=== PATIENT | female | born 1990 | race Caucasian/White ===

== ENCOUNTER 2017-05-02 19:37 | Emergency (ER) | payer OTHER ==
[2017-05-02] MEDS ORDERED: IBUPROFEN 800 MG TABLET PO ONE (21:10)
--- NOTE | 2017-05-02 21:11 | ER Document Report ---
ED Fever - General Chief Complaint: Fever Stated Complaint: FEVER,SORE THROAT Time Seen by Provider: 05/02/17 20:57 Notes: Patient is a 26 year old female who presents to the ED complaining of fever, sore throat, chest and back pain, and vomiting that started today. Patient states that she woke up this morning with a fever and sore throat. She states that throughout the day she was nauseous and she threw up twice prior to arrival. Patient states that she took [id number] DayQuil and Tylenol and Zofran for her symptoms. She states her most concerning symptoms right now her sore throat as well as her fever. She states that the pain in her back feels better when she lies down. States it is worse with movement. TRAVEL OUTSIDE OF THE [place] IN LAST 30 DAYS: No - Related Data Allergies/Adverse Reactions: No Known Allergies Allergy (Verified 05/02/17 22:24) Past Medical History - Social History Smoking Status: Never Smoker Family History: Reviewed & Not Pertinent Review of Systems - Review of Systems Notes: REVIEW OF SYSTEMS: CONSTITUTIONAL : Admits to fevers chills but denies sweats. Denies recent illness. EENT: Denies eye, ear, throat, or mouth pain or symptoms. Denies nasal or sinus congestion or discharge. Denies throat, tongue, or mouth swelling or difficulty swallowing. CARDIOVASCULAR: Denies chest pain. Denies palpitations or racing or irregular heart beat. Denies ankle edema. RESPIRATORY: Admits to nonproductive cough. Denies shortness of breath, difficulty breathing, or wheezing. GASTROINTESTINAL: Admits to vomiting denies abdominal pain or distention. Denies diarrhea. Denies blood in vomitus, stools, or per rectum. Denies black , tarry stools. Denies constipation. GENITOURINARY: Denies difficulty urinating, painful urination, burning, frequency, blood in urine, or discharge. MUSCULOSKELETAL: Denies any muscle spasms, difficulty walking, extremity pain SKIN: Denies rash, lesions or sores. HEMATOLOGIC : Denies easy bruising or bleeding. LYMPHATIC: Denies swollen, enlarged glands. NEUROLOGICAL: Denies confusion or altered mental status. Denies passing out or loss of consciousness. Denies dizziness or lightheadedness. Denies headache. Denies weakness or paralysis or loss of use of either side. Denies problems with gait or speech. Denies sensory loss, numbness, or tingling. Denies seizures. PSYCHIATRIC: Denies anxiety or stress. Denies depression, suicidal ideation, or homicidal ideation. ALL OTHER SYSTEMS REVIEWED AND NEGATIVE. Dictation was performed using [employer] voice recognition software Physical Exam - Vital signs Vitals: Temp Pulse Resp BP Pulse Ox 100.1 F 121 H 20 137/78 H 98 05/02/17 19:47 05/02/17 19:47 05/02/17 19:47 05/02/17 19:47 05/02/17 19:47 - Notes Notes: PHYSICAL EXAM GENERAL: Alert, interacts well. HEAD: Normocephalic, atraumatic. EYES: Pupils equal, round, and reactive to light. Extraocular movements intact. ENT: Oral mucosa moist, tongue midline. NECK: Full range of motion. Supple. Trachea midline. LUNGS: Clear to auscultation bilaterally, no wheezes, rales, or rhonchi. No respiratory distress. HEART: Regular rate and rhythm. No murmurs, gallops, or rubs. ABDOMEN: Soft, nondistended, nontender. No guarding, rebound, or rigidity.. Bowel sounds present in all 4 quadrants. Back: Lower thoracic Spinal muscle tenderness palpation with pain reproducible to palpation. No spinous process deformities or step-offs. No palpable crepitus EXTREMITIES: Moves all 4 extremities spontaneously. No edema, radial and dorsalis pedis pulses 2/4 bilaterally. No cyanosis. NEUROLOGICAL: Alert and oriented x4. Normal speech. PSYCH: Normal affect, normal mood. SKIN: Warm, dry, normal turgor. No rashes or lesions noted. Course - Re-evaluation Re-evalutation: Patient is a 26-year-old female is hemodynamically stable, no acute distress with mild fever and associated tachycardia. Patient able to tolerate p.o. fluids without any difficulty. Chest x-ray without any evidence of acute mediastinal air, associated cardiopulmonary process. Urinalysis without any evidence of UTI. Beta-hCG is negative. Rapid strep is negative. Patient's back pain significantly improved after Motrin and heat pack. At this time low clinical suspicion for any evidence of strep pharyngitis, meningitis, pneumonia. Will discharge patient home with strict return precautions. - Vital Signs Vital signs: Temp Pulse Resp BP Pulse Ox 100.1 F 104 H 16 113/66 98 05/02/17 19:47 05/02/17 23:00 05/02/17 23:00 05/02/17 23:00 05/02/17 23:00 - Laboratory Laboratory results interpreted by me: 05/02/17 21:15 Urine Blood SMALL H - Diagnostic Test Radiology reviewed: Image reviewed, Reports reviewed Discharge - Discharge Clinical Impression: Fever Qualifiers: Fever type: unspecified Qualified Code(s): R50.9 - Fever, unspecified Condition: Good Disposition: HOME, SELF-CARE Instructions: Fever ([facility]) Additional Instructions: Your symptoms are likely due to a virus. However, it is important that you continue to monitor for any concerning symptoms including inability to tolerate oral fluids, less than 2 urinations in a 24 hour period, and lethargy (acting very tired, not interactive, not responsive). Please continue to offer oral solutions such as Pedialyte or Gatorade. It is okay if you do not want to eat over the next several days but it is important that they continue to drink fluids. You may also provide a medication such as ibuprofen (Motrin) or acetaminophen (Tylenol) per box instructions for fever. Please also follow-up with your primary care physician in the next several days. Forms: Return to Work Referrals: [facility] [Provider Group] - Follow up in 3-5 days
[2017-05-02 21:52] LABS: APPEARANCE,URINE CLEAR; BILIRUBIN,URINE NEGATIVE (NEGATIVE); COLOR,URINE STRAW; GLUCOSE, URINE NEGATIVE (NEGATIVE); KETONES,URINE NEGATIVE (NEGATIVE); LEUKOCYTE ESTERASE,URINE NEGATIVE (NEGATIVE); NITRITE,URINE NEGATIVE (NEGATIVE); PROTEIN,URINE NEGATIVE (NEGATIVE); URINE SPECIFIC GRAVITY 1.006; UROBILINOGEN,URINE NEGATIVE mg/dL (<2.0)
[2017-05-02] MEDS ORDERED: IBUPROFEN 800 MG TABLET ONE (22:15)
--- NOTE | 2017-05-02 22:32 | RADIOLOGY REPORT (SQ) ---
EXAM DESCRIPTION: CHEST PA/LAT COMPLETED DATE/TIME: 05/02/2017 10:23 pm REASON FOR STUDY: chest pain after vomiting COMPARISON: None. EXAM PARAMETERS: NUMBER OF VIEWS: two views TECHNIQUE: Digital Frontal and Lateral radiographic views of the chest acquired. RADIATION DOSE: NA LIMITATIONS: none FINDINGS: LUNGS AND PLEURA: No opacities, masses or pneumothorax. No pleural effusion. MEDIASTINUM AND HILAR STRUCTURES: No masses or contour abnormalities. HEART AND VASCULAR STRUCTURES: Heart normal size. No evidence for failure. BONES: No acute findings. HARDWARE: None in the chest. OTHER: No other significant finding. IMPRESSION: NO SIGNIFICANT RADIOGRAPHIC FINDING IN THE CHEST. TECHNICAL DOCUMENTATION: JOB ID: [id number] [employer]- All Rights Reserved Reading location - IP/workstation name: [email or web address]
[2017-05-02 23:13] VITALS: BP 113/66
== END 2017-05-02 23:15 | disposition home or self-care (01) ==
LOC: ER 19:37
DX: J02.9 Acute pharyngitis, unspecified (principal); R50.9 Fever, unspecified; R07.9 Chest pain, unspecified
CPT/HCPCS: 71046; 81001; 81025; 87070; 87077; 87880; 99283

== ENCOUNTER 2017-05-05 02:07 | Emergency (ER) | payer OTHER ==
[2017-05-05 02:12] VITALS: BP 119/80
[2017-05-05] MEDS ORDERED: AMOXICILLIN TR/POT CLAVULANATE 500-125 MG TAB PO ONE (02:38)
[2017-05-05] MEDS ORDERED: DEXAMETHASONE 4 MG TABLET PO ONE (02:38)
--- NOTE | 2017-05-05 02:42 | ER Document Report ---
ED General - General Chief Complaint: Flu Symptoms Stated Complaint: FEVER Time Seen by Provider: 05/05/17 02:28 Mode of Arrival: Ambulatory Information source: Patient, Relative Notes: 26-year-old female with no reported past medical history presents for the second time this week to the emergency department with complaint persistent fever, sore throat and left ear pain. Patient states symptoms started 3 days prior to arrival. She states she has had a T-max of 103 at home. She has been taking Tylenol and Motrin without relief. Patient has associated headache, myalgias. She denies any chest pain, shortness of breath, nausea, vomiting, abdominal pain, dysuria. Patient had a negative test 3 days ago. She did not receive a flu shot and she denies sick contacts. TRAVEL OUTSIDE OF THE [place] IN LAST 30 DAYS: No - HPI Onset: Other - 3 days ago Onset/Duration: Gradual Quality of pain: Achy, Throbbing Severity: Mild Associated symptoms: Earache, Fever, Headache, Sore throat. denies: Nausea, Vomiting Exacerbated by: Denies Relieved by: Denies Similar symptoms previously: Yes Recently seen / treated by doctor: Yes - Related Data Allergies/Adverse Reactions: No Known Allergies Allergy (Verified 05/02/17 22:24) Past Medical History - General Information source: Patient - Social History Smoking Status: Never Smoker Frequency of alcohol use: None Drug Abuse: None Lives with: Spouse/Significant other Family History: Reviewed & Not Pertinent Patient has suicidal ideation: No Patient has homicidal ideation: No - Medical History Medical History: Negative Renal/ Medical History: Denies: Hx Peritoneal Dialysis Review of Systems - Review of Systems Constitutional: See HPI, Chills, Fever EENT: Ear pain, Sinus discharge, Throat pain, Throat swelling. denies: Difficulty swallowing Cardiovascular: denies: Chest pain, Palpitations Respiratory: denies: Short of breath Gastrointestinal: Nausea. denies: Abdominal pain, Vomiting Genitourinary: denies: Dysuria Physical Exam - Vital signs Vitals: Temp Pulse Resp BP Pulse Ox 97.9 F 94 16 119/80 98 05/05/17 02:10 05/05/17 02:10 05/05/17 02:10 05/05/17 02:10 05/05/17 02:10 - General General appearance: Appears well, Alert In distress: None - HEENT Head: Normocephalic, Atraumatic Eyes: Normal Pupils: PERRL Ears: Normal External canal: Normal Tympanic membrane: Normal Sinus: Normal Nasal: Normal Pharynx: Erythema, Exudate Neck: Anterior cervical chain, Posterior cervical chain - Respiratory Respiratory status: No respiratory distress Chest status: Nontender Breath sounds: Normal Chest palpation: Normal - Cardiovascular Rhythm: Regular Heart sounds: Normal auscultation Murmur: No Pulses: Normal: Radial Normal capillary refill: Yes - Back Back: Normal, Nontender - Extremities General upper extremity: Normal inspection, Nontender, Normal color, Normal ROM , Normal temperature General lower extremity: Normal inspection, Nontender, Normal color, Normal ROM , Normal temperature, Normal weight bearing. No: Luigi's sign Course - Re-evaluation Re-evalutation: 05/05/17 03:07 26-year-old female presents with complaint of fever, sore throat and ear pain that started 3 days prior to arrival. Patient was seen previously in the emergency department and diagnosed with a viral illness. She states since then she has had progressively worsening pain and persistent fever. Upon arrival vital signs stable. Patient does not appear toxic or dehydrated. She is in no acute distress. Exam is significant for lymphadenopathy, exudates. Patient has a Centor score of 3. She was administered her first dose of Augmentin in the department and will be discharged home with a 10 day prescription for Augmentin. - Vital Signs Vital signs: Temp Pulse Resp BP Pulse Ox 97.9 F 94 16 119/80 98 05/05/17 02:10 05/05/17 02:10 05/05/17 02:10 05/05/17 02:10 05/05/17 02:10 Discharge - Discharge Clinical Impression: Sore throat, Pharyngitis Fever Qualifiers: Fever type: unspecified Qualified Code(s): R50.9 - Fever, unspecified Condition: Good Disposition: HOME, SELF-CARE Instructions: Fever ([facility]), Sore Throat ([facility]) Prescriptions: Amox Tr/Potassium Clavulanate [Augmentin 875-125 Tablet] 1 tab PO BID 10 Days # 20 tablet Forms: Return to Work
== END 2017-05-05 03:02 | disposition home or self-care (01) ==
LOC: ER 02:07
DX: J02.9 Acute pharyngitis, unspecified (principal); R50.9 Fever, unspecified; H92.02 Otalgia, left ear; R51 Headache; M79.1 Myalgia; R11.0 Nausea; J34.89 Other specified disorders of nose and nasal sinuses; R59.1 Generalized enlarged lymph nodes
CPT/HCPCS: 99283

== ENCOUNTER 2017-09-22 16:47 | Emergency (ER) | payer OTHER ==
[2017-09-22] MEDS ORDERED: RINGERS SOLUTION,LACTATED 1,000 ML IV ONE (17:06)
--- NOTE | 2017-09-22 17:15 | ER Document Report ---
ED GI/ - General Chief Complaint: Abdominal Pain Stated Complaint: VOMITING/ABDOMINAL PAIN Time Seen by Provider: 09/22/17 17:06 Mode of Arrival: Ambulatory Information source: Patient Notes: Chief complaint: Epigastric pain History of complain:( obtained from----patient) 27 years old female who is 6 weeks presents today with nausea epigastric pain as well as vomited almost 5 times. Since this morning. The pain is centered around the epigastrium nonradiating. Denies any fever chills or other constitutional symptoms. Denies any dysuria frequency urgency. Denies any vaginal bleeding. Onset: As above Duration: Gradual Severity: Mild to moderate Quality: Sharp Context: Exacerbating factor and relieving factors: None REVIEW OF SYSTEMS: CONSTITUTIONAL : Denies fever, chills, or sweats. Denies recent illness. EENT: Denies eye, ear, throat, or mouth pain or symptoms. Denies nasal or sinus congestion or discharge. Denies throat, tongue, or mouth swelling or difficulty swallowing. CARDIOVASCULAR: Denies chest pain. Denies palpitations or racing or irregular heart beat. Denies ankle edema. RESPIRATORY: Denies cough, cold, or chest congestion. Denies shortness of breath, difficulty breathing, or wheezing. GASTROINTESTINAL: Denies distention. Denies nausea, vomiting, or diarrhea. Denies blood in vomitus, stools, or per rectum. Denies black, tarry stools. Denies constipation. GENITOURINARY: Denies difficulty urinating, painful urination, burning, frequency, blood in urine, or discharge. FEMALE GENITOURINARY: Denies vaginal bleeding, heavy or abnormal periods, irregular periods. Denies vaginal discharge or odor. MUSCULOSKELETAL: Denies back or neck pain or stiffness. Denies joint pain or swelling. SKIN: Denies rash, lesions or sores. HEMATOLOGIC : Denies easy bruising or bleeding. LYMPHATIC: Denies swollen, enlarged glands. NEUROLOGICAL: Denies confusion or altered mental status. Denies passing out or loss of consciousness. Denies dizziness or lightheadedness. Denies headache. Denies weakness or paralysis or loss of use of either side. Denies problems with gait or speech. Denies sensory loss, numbness, or tingling. Denies seizures. PSYCHIATRIC: Denies anxiety or stress. Denies depression, suicidal ideation, or homicidal ideation. ALL OTHER SYSTEMS REVIEWED AND NEGATIVE. PHYSICAL EXAMINATION: GENERAL: Well-appearing, well-nourished and in mild acute distress. HEAD: Atraumatic, normocephalic. EYES: Pupils equal round and reactive to light, extraocular movements intact, conjunctiva are normal. ENT: Nares patent, oropharynx clear without exudates. Moist mucous membranes. NECK: Normal range of motion, supple without lymphadenopathy LUNGS: Breath sounds clear to auscultation bilaterally and equal. No wheezes rales or rhonchi. HEART: Regular rate and rhythm without murmurs ABDOMEN: Soft, epigastric tenderness, no tenderness over the right upper quadrant., nondistended abdomen. No guarding, no rebound. No masses appreciated. Examination of genitals-deferred Musculoskeletal: Normal range of motion, no pitting or edema. No cyanosis. NEUROLOGICAL: Cranial nerves grossly intact. Normal speech, normal gait. Normal sensory, motor exams PSYCH: Normal mood, normal affect. SKIN: Warm, Dry, normal turgor, no rashes or lesions noted. Dictation was performed using [employer] voice recognition software TRAVEL OUTSIDE OF THE [place] IN LAST 30 DAYS: No - HPI Notes: 09/22/17 17:15 Dictated - Related Data Allergies/Adverse Reactions: No Known Allergies Allergy (Verified 09/22/17 16:48) Past Medical History - Social History Smoking Status: Never Smoker Frequency of alcohol use: None Lives with: Family Family History: Reviewed & Not Pertinent Patient has suicidal ideation: No Patient has homicidal ideation: No Renal/ Medical History: Denies: Hx Peritoneal Dialysis Review of Systems - Review of Systems Notes: Dictated Physical Exam - Vital signs Vitals: Temp Pulse Resp BP Pulse Ox 98.4 F 72 16 115/68 99 09/22/17 16:54 09/22/17 16:54 09/22/17 16:54 09/22/17 16:54 09/22/17 16:54 - Notes Notes: Dictated Course - Vital Signs Vital signs: Temp Pulse Resp BP Pulse Ox 98.4 F 72 16 115/68 99 09/22/17 16:54 09/22/17 16:54 09/22/17 16:54 09/22/17 16:54 09/22/17 16:54 - Laboratory Result Diagrams: 09/22/17 17:23 09/22/17 17:23 Laboratory results interpreted by me: 08/08/18 17:23 WBC 22.2 H RDW 14.1 H Seg Neuts % (Manual) 81 H Band Neutrophils % 1 L Abs Neuts (Manual) 18.2 H Discharge - Discharge Clinical Impression: Abdominal pain Qualifiers: Abdominal location: right upper quadrant Qualified Code(s): R10.11 - Right upper quadrant pain Leukocytosis Qualifiers: Leukocytosis type: other Qualified Code(s): D72.828 - Other elevated white blood cell count
[2017-09-22 18:02] LABS: HEMATOCRIT 41.7 % (36.0-47.0); MEAN CORPUSCULAR HEMOGLOBIN 29.6 pg (27.0-33.4); MEAN CORPUSCULAR HGB CONC 33.7 g/dL (32.0-36.0); MEAN CORPUSCULAR VOLUME 88 fl (80-97); PLATELET COUNT 355 10^3/uL (150-450); RED BLOOD COUNT 4.75 10^6/uL (3.72-5.28); RED CELL DISTRIBUTION WIDTH 14.1 % (11.5-14.0); WHITE BLOOD COUNT 22.2 10^3/uL (4.0-10.5)
[2017-09-22 18:22] LABS: ALANINE AMINOTRANSFERASE 19 U/L (9-52); ALBUMIN 4.3 g/dL (3.5-5.0); ALKALINE PHOSPHATASE 78 U/L (38-126); ANION GAP 14 (5-19); ASPARTATE AMINO TRANSFERASE 30 U/L (14-36); BILIRUBIN,DIRECT 0.3 mg/dL (0.0-0.4); BILIRUBIN,TOTAL 0.5 mg/dL (0.2-1.3); BLOOD UREA NITROGEN 7 mg/dL (7-20); CARBON DIOXIDE 23 mmol/L (22-30); CHLORIDE 104 mmol/L (98-107); GLUCOSE 94 mg/dL (75-110); SODIUM 140.5 mmol/L (137-145)
[2017-09-22 18:25] LABS: ABSOLUTE LYMPHOCYTES# (MANUAL) 3.3 10^3/uL (0.5-4.7); ABSOLUTE MONOCYTES # (MANUAL) 0.7 10^3/uL (0.1-1.4); ABSOLUTE NEUTROPHILS# (MANUAL) 18.2 10^3/uL (1.7-8.2); BAND NEUTROPHILS % (MANUAL) 1 % (3-5); BASOPHILS % (MANUAL) 0 % (0-2); EOSINOPHILS % (MANUAL) 0 % (0-6); LYMPHOCYTES % (MANUAL) 15 % (13-45); MONOCYTES % (MANUAL) 3 % (3-13); SEGMENTED NEUTROPHILS % (MAN) 81 % (42-78); TOTAL CELLS COUNTED 100
[2017-09-22 18:28] LABS: ANISOCYTOSIS SLIGHT; PLATELET COMMENT ADEQUATE
[2017-09-22] MEDS ORDERED: CEFTRIAXONE 1 GM/D5W RTU 50 ML IV ONE (18:34)
[2017-09-22] MEDS ORDERED: NORMAL SALINE 1000 ML 1,000 ML IV PRN (18:38)
--- NOTE | 2017-09-22 19:37 | RADIOLOGY REPORT (SQ) ---
EXAM DESCRIPTION: U/S ABDOMEN LIMITED W/O DOP COMPLETED DATE/TIME: 09/22/2017 7:25 pm REASON FOR STUDY: Cholecystitis COMPARISON: None. TECHNIQUE: Dynamic and static grayscale images acquired of the abdomen and recorded on PACS. Additio nal selected color Doppler and spectral images recorded. LIMITATIONS: None. FINDINGS: PANCREAS: Nonvisualized due to bowel gas. LIVER: The liver demonstrates normal echogenicity measuring 15.6 cm. LIVER VASCULATURE: Normal directional flow of the main portal vein and hepatic veins. GALLBLADDER: No cholelithiasis. The gallbladder wall measures 3 mm. ULTRASOUND-DETECTED PEREZ'S SIGN: Positive. INTRAHEPATIC DUCTS AND COMMON DUCT: CBD measures 3.4 mm. Intra biliary ducts normal caliber. No fill ing defects. INFERIOR VENA CAVA: Normal flow. AORTA: The proximal abdominal aorta measures 1.7 cm. The mid abdominal aorta measures 1.2 cm and dis tally 1.1 cm. . RIGHT KIDNEY: The right kidney is visualized measuring 10 cm in length demonstrating normal echogeni [place]. IMPRESSION: Given history of tenderness over the gallbladder or a positive Perez sign ,follow-up [facility] hepatobiliary scan could be obtained if clinically indicated. TECHNICAL DOCUMENTATION: JOB ID: [id number] 2010 [employer]- All Rights Reserved Reading location - IP/workstation name: [email or web address]
[2017-09-22] MEDS ORDERED: CEFTRIAXONE INJ 1000 MG VIAL IV ONE (20:00)
--- NOTE | 2017-09-22 20:35 | PDOC CONSULTATION ---
Consultation Consult Date: 09/22/17 Consult reason:: Abdominal pain History of Present Illness History of Present Illness: SO TRISTAN is a 27 year old female seen in consultation at the request of the emergency room physician. Patient reports a several hour history of epigastric and left upper quadrant abdominal pain. It began after eating dinner. The patient began having nausea and vomiting. The patient presented to the emergency department because her pain was "more than usual". The patient is 6 weeks and reports a history of severe nausea and vomiting with . She reports that even the smell of food makes her nauseated during . The patient denies chest pain, shortness of breath, fevers, chills. She has been suffering from recent constipation. Nothing makes her pain worse. Having a bowel movement today has made her pain better. Past Medical History Medical History: None Past Surgical History Past Surgical History: Reports: None Social History Lives with: Family Smoking Status: Never Smoker Frequency of Alcohol Use: None Hx Recreational Drug Use: No Hx Prescription Drug Abuse: No Family History Family History: Reviewed & Not Pertinent Parental Family History Reviewed: Yes Children Family History Reviewed: Yes Sibling(s) Family History Reviewed.: Yes Medication/Allergy Home Medications: Amox Tr/Potassium Clavulanate [Augmentin 875-125 Tablet] 1 tab PO BID 10 Days # 20 tablet 05/05/17 Allergies/Adverse Reactions: No Known Allergies Allergy (Verified 09/22/17 16:48) Review of Systems Constitutional: ABSENT: anorexia, chills, fatigue, fever(s), headache(s) Eyes: ABSENT: visual disturbances Ears: ABSENT: hearing changes Nose, Mouth, and Throat: ABSENT: sore throat Cardiovascular: ABSENT: chest pain, dyspnea on exertion Respiratory: ABSENT: cough, dyspnea Gastrointestinal: PRESENT: abdominal pain - Epigastric and left upper quadrant, nausea, vomiting Genitourinary: ABSENT: dysuria Musculoskeletal: ABSENT: back pain Integumentary: ABSENT: pruritus, rash Psychiatric: ABSENT: anxiety, depression Hematologic/Lymphatic: ABSENT: easy bleeding, easy bruising Physical Exam Vital Signs: Temp Pulse Resp BP Pulse Ox 98.4 F 72 16 115/68 99 09/22/17 16:54 09/22/17 16:54 09/22/17 16:54 09/22/17 16:54 09/22/17 16:54 Intake & Output 0809/22/17 09/23/17 06:59 06:59 06:59 Intake Total 1000 Balance 1000 Weight 93.9 kg General appearance: PRESENT: no acute distress Head exam: PRESENT: atraumatic, normocephalic Eye exam: PRESENT: EOMI, PERRLA. ABSENT: scleral icterus Mouth exam: PRESENT: moist, neck supple Teeth exam: ABSENT: poor dentation Neck exam: ABSENT: lymphadenopathy, meningismus, tenderness, thyromegaly, tracheal deviation Respiratory exam: PRESENT: clear to auscultation alice, unlabored. ABSENT: chest wall tenderness, tachypnea, wheezes Cardiovascular exam: PRESENT: RRR Pulses: PRESENT: normal radial pulses Vascular exam: PRESENT: normal capillary refill. ABSENT: pallor GI/Abdominal exam: PRESENT: soft. ABSENT: distended, firm, guarding, Perez's sign, tenderness Rectal exam: PRESENT: deferred Extremities exam: ABSENT: clubbing Musculoskeletal exam: ABSENT: deformity Neurological exam: PRESENT: alert, awake, oriented to person, oriented to place , oriented to time, oriented to situation, CN II-XII grossly intact. ABSENT: motor sensory deficit Psychiatric exam: ABSENT: agitated, anxious, depressed Focused psych exam: ABSENT: delusional Skin exam: ABSENT: cyanosis, erythema, jaundice Results Laboratory Results: 09/22/17 17:23 09/22/17 17:23 09/22/17 09/22/17 17:23 17:23 WBC 22.2 H RBC 4.75 Hgb 14.0 Hct 41.7 MCV 88 MCH 29.6 MCHC 33.7 RDW 14.1 H Plt Count 355 Seg Neutrophils % Not Reportable Lymphocytes % Not Reportable Monocytes % Not Reportable Eosinophils % Not Reportable Basophils % Not Reportable Absolute Neutrophils Not Reportable Absolute Lymphocytes Not Reportable Absolute Monocytes Not Reportable Absolute Eosinophils Not Reportable Absolute Basophils Not Reportable Sodium 140.5 Potassium 4.0 Chloride 104 Carbon Dioxide 23 Anion Gap 14 BUN 7 Creatinine 0.62 Est GFR ( Amer) > 60 Est GFR (Non-Af Amer) > 60 Glucose 94 Calcium 9.0 Total Bilirubin 0.5 AST 30 ALT 19 Alkaline Phosphatase 78 Total Protein 8.0 Albumin 4.3 Impressions: Abdomen Ultrasound 09/22/17 18:33 IMPRESSION: Given history of tenderness over the gallbladder or a positive Perez sign ,follow-up with hepatobiliary scan could be obtained if clinically indicated. Status: Image reviewed by me Assessment & Plan - Diagnosis (1) Abdominal pain Qualifiers: Abdominal location: right upper quadrant Qualified Code(s): R10.11 - Right upper quadrant pain Is this a current diagnosis for this admission?: Yes - Plan Summary Plan Summary: This is a 27-year-old female who is 6 weeks . She began having epigastric/left upper quadrant abdominal pain, nausea, and vomiting today. The patient reports that nausea and vomiting is normal for her during . The patient denies any fevers, chills, back pain, right lower quadrant pain. The patient has been suffering from constipation recently. Her pain has significantly improved after having several bowel movements. On exam, the patient has no abdominal wall tenderness. I have personally reviewed her ultrasound images and report. The patient's gallbladder appears normal. There is no pericholecystic fluid or obvious gallstones. There is no gallbladder wall thickening. Patient's bilirubin, alkaline phosphatase, ALT, and AST are completely normal. The patient has no tenderness in her right upper quadrant or right lower quadrant. I do not believe the patient has acute cholecystitis or acute appendicitis. I will order an amylase, lipase, and urinalysis to complete her workup. At this time, I cannot identify any surgical problems. Disposition per ER physician.
[2017-09-22 20:39] LABS: LIPASE 52.1 U/L (23-300)
[2017-09-22] MEDS ORDERED: ONDANSETRON 4 MG TAB.RAPDIS PO ONE (20:59)
[2017-09-22] MEDS ORDERED: PROMETHAZINE HCL 25 MG SUPP.RECT PR ONE (21:25)
[2017-09-22 21:32] LABS: APPEARANCE,URINE TURBID; BILIRUBIN,URINE NEGATIVE (NEGATIVE); COLOR,URINE YELLOW; GLUCOSE, URINE NEGATIVE (NEGATIVE); KETONES,URINE NEGATIVE (NEGATIVE); LEUKOCYTE ESTERASE,URINE NEGATIVE (NEGATIVE); NITRITE,URINE NEGATIVE (NEGATIVE); PROTEIN,URINE NEGATIVE (NEGATIVE); UROBILINOGEN,URINE NEGATIVE mg/dL (<2.0)
[2017-09-22 22:08] LABS: ABSOLUTE BASOPHILS # (AUTO) 0.1 10^3/uL (0.0-0.2); ABSOLUTE LYMPHOCYTES (AUTO) 1.9 10^3/uL (0.5-4.7); ABSOLUTE MONOCYTES (AUTO) 0.6 10^3/uL (0.1-1.4); ABSOLUTE NEUT (AUTO) 16.9 10^3/uL (1.7-8.2); BASOPHILS % (AUTO) 0.6 % (0-2); EOSINOPHILS % (AUTO) 0.1 % (0-6); HEMOGLOBIN 13.1 g/dL (12.0-15.5); LYMPHOCYTES % (AUTO) 9.9 % (13-45); MEAN CORPUSCULAR HEMOGLOBIN 29.7 pg (27.0-33.4); MEAN CORPUSCULAR HGB CONC 33.6 g/dL (32.0-36.0); MEAN CORPUSCULAR VOLUME 88 fl (80-97); MONOCYTES % (AUTO) 3.2 % (3-13); PLATELET COUNT 335 10^3/uL (150-450); RED BLOOD COUNT 4.41 10^6/uL (3.72-5.28); RED CELL DISTRIBUTION WIDTH 14.1 % (11.5-14.0); SEGMENTED NEUTROPHILS % (AUTO) 86.2 % (42-78); TOTAL CELLS COUNTED % (AUTO) 100 %; WHITE BLOOD COUNT 19.6 10^3/uL (4.0-10.5)
[2017-09-22] MEDS ORDERED: PROMETHAZINE HCL 25 MG SUPP (4 SUPP/ER DISP) PR ONE (22:19)
[2017-09-22] MEDS ORDERED: ONDANSETRON ODT 4 MG TAB (6 TAB/ER DISP) PO PRN (22:19)
[2017-09-22 22:25] VITALS: BP 112/59
== END 2017-09-22 22:33 | disposition home or self-care (01) ==
LOC: ER 16:47
DX: O26.891 Other specified pregnancy related conditions, first trimester (principal); R10.11 Right upper quadrant pain; R10.13 Epigastric pain; O21.9 Vomiting of pregnancy, unspecified; O99.111 Other diseases of the blood and blood-forming organs and certain disorders involving the immune mechanism complicating pregnancy, first trimester; D72.829 Elevated white blood cell count, unspecified; Z3A.01 Less than 8 weeks gestation of pregnancy
CPT/HCPCS: 99284; 96361; 96375; 96365; 36415; 82150; 84702; 83690; 85025; 80053; 81001; 76705; S0119; J3490 ×2; J0696; J7030; J7120

== ENCOUNTER 2018-05-14 16:26 | Inpatient (IN) | payer OTHER ==
[2018-05-17] MEDS ORDERED: OXYTOCIN/NORMAL SALINE 20 UNIT/1,000 ML RTUINJ IV PRN ×2 (08:29→13:06)
[2018-05-17] MEDS ORDERED: RINGERS SOLUTION,LACTATED 1,000 ML IV PRN (08:45)
--- NOTE | 2018-05-17 08:45 | Admission Physical ---
Datetime Report Generated by CPN: 05/17/2018 08:45 CURRENT ADMISSION Chief Complaint: Scheduled Induction of Labor Indication for Induction- Other: elective Admit Impression : Term, Intrauterine Admit Plan: Admit to Unit; Initiate Labor Induction Protocol ALLERGIES Medication Allergies: No Medication Allergies: No Known Allergies (09/22/2017) Latex: No Latex Allergies Food Allergies: No Known Allergies Environmental Allergies: No Known Allergies OBSTETRICAL HISTORY EDC: 05/14/2018 00:00 : 2 Para: 1 Obstetrical History Comments: G1 2015 @ 38 weeks w/ epidural, baby girl 6lbs 6oz, induction needed blood patch on spine SEE RECORDS Alcohol: No Marijuana : No Cocaine: No Other Illicit Drugs: No Cigarettes: Never Smoker. [id number] PHYSICAL EXAM General: Normal HEENT: Normal Neurologic: Normal Thyroid: Deferred Heart: Normal Lungs: Normal Breast: Deferred Back: Normal Abdomen: Normal Genitourinary Exam: Normal Extremities: Normal DTRs: Deferred Pelvic Type: Adequate Physical Exam Comments: pelvis proven to 6#6 Vital Signs: Reviewed; Within Normal Limits VAGINAL EXAM Contraction Comments: none FETUS A EGA: 40.3 Monitoring: External US FHR- Baseline: 135 Variability: Moderate 6-25bpm Accelerations: 15X15 Decelerations: None FHR Category: Category I Estimated Weight (gm): 3200 Presentation: Vertex Admit Comment: at 40w for IOL. RN to check cervix and start pitocin. GBS neg, P: pitocin IOL, anticipate INFORMED CONSENT Assignment: Nova Jaison, MD Signature: with User ID: [email or web address] : with User ID: [email or web address]
[2018-05-17 08:55] LABS: ABSOLUTE EOSINOPHILS # (AUTO) 0.1 10^3/uL (0.0-0.6); ABSOLUTE LYMPHOCYTES (AUTO) 2.3 10^3/uL (0.5-4.7); ABSOLUTE MONOCYTES (AUTO) 0.9 10^3/uL (0.1-1.4); ABSOLUTE NEUT (AUTO) 12.1 10^3/uL (1.7-8.2); BASOPHILS % (AUTO) 0.2 % (0-2); EOSINOPHILS % (AUTO) 0.4 % (0-6); HEMATOCRIT 35.1 % (36.0-47.0); HEMOGLOBIN 12.2 g/dL (12.0-15.5); LYMPHOCYTES % (AUTO) 15.1 % (13-45); MEAN CORPUSCULAR HEMOGLOBIN 31.5 pg (27.0-33.4); MEAN CORPUSCULAR HGB CONC 34.7 g/dL (32.0-36.0); MEAN CORPUSCULAR VOLUME 91 fl (80-97); PLATELET COUNT 311 10^3/uL (150-450); RED BLOOD COUNT 3.87 10^6/uL (3.72-5.28); RED CELL DISTRIBUTION WIDTH 14.9 % (11.5-14.0); SEGMENTED NEUTROPHILS % (AUTO) 78.3 % (42-78); TOTAL CELLS COUNTED % (AUTO) 100 %; WHITE BLOOD COUNT 15.4 10^3/uL (4.0-10.5)
[2018-05-17 09:25] LABS: APPEARANCE,URINE SLIGHTLY-CLOUDY; BILIRUBIN,URINE NEGATIVE (NEGATIVE); COLOR,URINE YELLOW; GLUCOSE, URINE NEGATIVE (NEGATIVE); KETONES,URINE NEGATIVE (NEGATIVE); LEUKOCYTE ESTERASE,URINE NEGATIVE (NEGATIVE); NITRITE,URINE NEGATIVE (NEGATIVE); PROTEIN,URINE NEGATIVE (NEGATIVE); URINE SPECIFIC GRAVITY 1.019; UROBILINOGEN,URINE NEGATIVE mg/dL (<2.0)
[2018-05-17] MEDS ORDERED: OXYTOCIN/NORMAL SALINE 20 UNIT/1,000 ML RTUINJ ONE (09:32)
[2018-05-17] MEDS ORDERED: OXYTOCIN 10 UNIT/ML VIAL ONE (09:32)
[2018-05-17] MEDS ORDERED: LIDOCAINE 1% INJ-PF (10 MG/ML) 30 ML SDV ONE (09:32)
[2018-05-17] MEDS ORDERED: MISOPROSTOL 0.2 MG TABLET ONE (09:32)
[2018-05-17 09:44] LABS: URINE AMPHETAMINES SCREEN NEGATIVE; URINE BARBITURATES SCREEN NEGATIVE; URINE BENZODIAZEPINES SCREEN NEGATIVE; URINE COCAINE SCREEN NEGATIVE; URINE MARIJUANA (THC) SCREEN NEGATIVE; URINE METHADONE SCREEN NEGATIVE; URINE PHENCYCLIDINE SCREEN NEGATIVE
[2018-05-17] MEDS ORDERED: NA PHOS,M-B/NA PHOS,DI-BA (ADULT) 133 ML ENEMA PR PRN (13:06)
[2018-05-17] MEDS ORDERED: GLYCERIN/WITCH HAZEL LEAF 1 EACH MED..PAD TP PRN (13:06)
[2018-05-17] MEDS ORDERED: PROMETHAZINE HCL INJ 25 MG/1 ML VIAL IV PRN (13:06)
[2018-05-17] MEDS ORDERED: PROMETHAZINE HCL 25 MG TABLET PO PRN (13:06)
[2018-05-17] MEDS ORDERED: ZOLPIDEM TARTRATE 5 MG TABLET PO PRN (13:06)
[2018-05-17] MEDS ORDERED: MEASLES,MUMPS&RUBELLA VACC/PF 0.5 ML VIAL SUBCUT PRN (13:06)
[2018-05-17] MEDS ORDERED: PROMETHAZINE HCL 25 MG SUPP.RECT PR PRN (13:06)
[2018-05-17] MEDS ORDERED: MAGNESIUM HYDROXIDE SUSP 30 ML UDCUP PO PRN (13:06)
[2018-05-17] MEDS ORDERED: PSEUDOEPHEDRINE HCL 30 MG TABLET PO PRN (13:06)
[2018-05-17] MEDS ORDERED: DIPHENHYDRAMINE HCL 25 MG CAPSULE PO PRN (13:06)
[2018-05-17] MEDS ORDERED: ACETAMINOPHEN WITH CODEINE #3 TABLET PO PRN ×2 (13:06)
[2018-05-17] MEDS ORDERED: DIBUCAINE 1% OINTMENT 56 GM TP PRN (13:06)
[2018-05-17] MEDS ORDERED: DIPH/PERTUSS(ACELL)/TETANUS VAC/PF 0.5 ML SYR (>=10YO) IM PRN (13:06)
[2018-05-17] MEDS ORDERED: BENZOCAINE/MENTHOL AEROSOL SPRAY 56 ML TOP PRN (13:06)
--- NOTE | 2018-05-17 14:07 | Delivery Summary ---
Del Sum A-C Datetime Report Generated by CPN: 05/17/2018 14:06 DELIVERY PERSONNEL DELIVERY PERSONNEL: [id number] Delivery Doctor:: Doris Coley CNM Labor and Delivery Nurse:: Lilian Mark RN Labor and Delivery Nurse:: Penelope Slaughter RN Photo Booth Operator/QUILL CLEANING MACHINE OPERATOR: Miranda Rudd QUILL CLEANING MACHINE OPERATOR II Additional Personnel: : Carla Shrot RN MATERNAL INFORMATION Delivery Anesthesia: None Medications After Delivery: Pitocin Bolus-Please Comment; Pitocin Drip 20 Units/1000ml NSS Maternal Complications: None Provider Comments: JOHANNA VIABLE FEMALE INFANT WITH SPONTANEOUS CRY. TIGHT NUCHAL CORD-UNABLE TO REDUCE, BABY SOMMERSAULTED. CORD DOUBLE CLAMPED AND CUT. SPONTANEOUS INTACT PLACENTA WITH 3VC. REPAIR OF LACERATION ABOVE. MOTHER AND INFANT STABLE IN L_D #1. LABOR SUMMARY EDC: 05/14/2018 00:00 No. Babies in Womb: 1 Attempted: No Labor Anesthesia: None LABOR INFORMATION Reason for Induction: Post Dates; Other Reason for Induction- Other: ELECTIVE Onset of Labor: 05/17/2018 09:30 Complete Dilatation: 05/17/2018 12:19 Group B Beta Strep: Negative Antibiotics # of Doses: 0 Steroids Given: None Reason Steroids Not Administered: Not Applicable MEMBRANES Membranes Rupture Method: Artificial Rupture of Membranes: 05/17/2018 12:17 Length of Rupture (hr): 0.20 Amniotic Fluid Color: Bloody Amniotic Fluid Amount: Scant STAGES OF LABOR Stage 1 hr: 2 Stage 1 min: 49 Stage 2 hr: 0 Stage 2 min: 10 Stage 3 hr: 0 Stage 3 min: 7 Total Time in Labor hr: 3 Total Time in Labor min: 6 VAGINAL DELIVERY Episiotomy: None Laceration #1: Perineal Laceration Extension #1: First Degree Laceration Repair: Yes Laceration Repair Note: FIRST DEGREE PERINEAL LACERATION REPAIRED UNDER LOCAL ANESTHESIA Sponge Count Correct: N/A Sharps Count Correct: N/A CSECTION DELIVERY Primary Indication: N/A Secondary Indication: N/A CSection Incidence: N/A Labor: N/A Elective: N/A CSection Incision: N/A BABY A INFORMATION Delivery Date/Time: 05/17/2018 12:29 Method of Delivery: Vaginal Born in Route : No : N/A Forceps: N/A Vacuum Extraction: N/A Shoulder Dystocia : No PRESENTATION/POSITION BABY A Presentation: Cephalic Cephalic Presentation: Vertex Vertex Position: Right Occipital Anterior Breech Presentation: N/A PLACENTA INFORMATION BABY A Placenta Delivery Time : 05/17/2018 12:36 Placenta Method of Delivery: Spontaneous Placenta Status: Delivered SCORES BABY A Heart Rate 1 min: >100 bpm Resp Effort 1 min: Good Cry Reflex Irritability 1 min: Cough or Sneeze or Pulls Away Muscle Tone 1 min: Active Motion Color 1 min: Body [place], Extremities Blue Resuscitation Effort 1 min: Tactile Stimulation SCORE 1 MIN: 9 Heart Rate 5 min: >100 bpm Resp Effort 5 min: Good Cry Reflex Irritability 5 min: Cough or Sneeze or Pulls Away Muscle Tone 5 min: Active Motion Color 5 min: Body [place], Extremities Blue Resuscitation Effort 5 min: Tactile Stimulation SCORE 5 MIN: 9 INFORMATION BABY A Gestational Age at Delivery: 40.3 Gestational Status: Full Term- 39- 40.6 Weeks Outcome : Liveborn Infant Condition : Stable Infant Sex: Female IDENTIFICATION BABY A Verification Date/Time: 05/17/2018 12:52 ID Band Number: [id number] Mother's Name Verified: Yes Infant RN Verifying : , RN Additional Verifying Personnel: Cale, /QUILL CLEANING MACHINE OPERATOR WEIGHT/LENGTH BABY A Birthweight (gm): 3604 Infant Weight (lb): 7 Infant Weight (oz): 15 Infant Length (in): 21.00 Length (cm): 53.34 CORD INFORMATION BABY A No. Cord Vessels: 3 Nuchal Cord : Around Neck x1, Tight Cord Blood Taken: Yes-For Eval (Mom's Blood Type - or O+) Infant Suction: None ASSESSMENT BABY A Infant Complications: Multiple Variable Decels; Other Complications- Other: TERMINAL MECONIUM Physical Findings at Delivery: Within Normal Limits Infant Respirations: Appears Normal Skin to Skin: Yes Courtesy Driver/ALS Called : No Care By: J FIELD, RN Transferred To: Remains with Mother BABY B INFORMATION : N/A SIGNATURES Assignment: Nova Blackwood MD Signature: with User ID: [email or web address] : with User ID: [email or web address] : I was personally available for consultation and serving as supervising physician for the MLP.
[2018-05-17] MEDS: IBUPROFEN 800 MG TABLET PO SCH ×2 (15:39→21:12)
[2018-05-17] MEDS: ACETAMINOPHEN 325 MG TABLET PO PRN (16:36)
[2018-05-17] MEDS: FERROUS SULFATE 325 MG TABLET PO SCH (17:24)
[2018-05-17] MEDS: DOCUSATE SODIUM 100 MG CAPSULE PO SCH (17:24)
[2018-05-17] MEDS: FAMOTIDINE 20 MG TABLET PO SCH (21:13)
[2018-05-18] MEDS: IBUPROFEN 800 MG TABLET PO SCH ×3 (06:38→21:21)
[2018-05-18 07:51] LABS: ABSOLUTE BASOPHILS # (AUTO) 0.1 10^3/uL (0.0-0.2); ABSOLUTE LYMPHOCYTES (AUTO) 2.2 10^3/uL (0.5-4.7); ABSOLUTE MONOCYTES (AUTO) 0.8 10^3/uL (0.1-1.4); ABSOLUTE NEUT (AUTO) 13.2 10^3/uL (1.7-8.2); BASOPHILS % (AUTO) 0.3 % (0-2); EOSINOPHILS % (AUTO) 0.2 % (0-6); HEMATOCRIT 31.2 % (36.0-47.0); HEMOGLOBIN 10.8 g/dL (12.0-15.5); LYMPHOCYTES % (AUTO) 13.7 % (13-45); MEAN CORPUSCULAR HEMOGLOBIN 31.4 pg (27.0-33.4); MEAN CORPUSCULAR HGB CONC 34.6 g/dL (32.0-36.0); MEAN CORPUSCULAR VOLUME 91 fl (80-97); MONOCYTES % (AUTO) 4.9 % (3-13); PLATELET COUNT 305 10^3/uL (150-450); RED BLOOD COUNT 3.43 10^6/uL (3.72-5.28); RED CELL DISTRIBUTION WIDTH 14.5 % (11.5-14.0); SEGMENTED NEUTROPHILS % (AUTO) 80.9 % (42-78); TOTAL CELLS COUNTED % (AUTO) 100 %; WHITE BLOOD COUNT 16.3 10^3/uL (4.0-10.5)
[2018-05-18] MEDS: SENNOSIDES/DOCUSATE 8.6-50 MG 1 EACH TABLET PO SCH (10:00)
[2018-05-18] MEDS: FERROUS SULFATE 325 MG TABLET PO SCH ×2 (10:00→17:29)
[2018-05-18] MEDS: FAMOTIDINE 20 MG TABLET PO SCH ×2 (10:00→21:21)
[2018-05-18] MEDS: PRENATAL VITAMIN W DHA CAPSULE PO SCH (10:01)
[2018-05-18] MEDS: DOCUSATE SODIUM 100 MG CAPSULE PO SCH ×2 (10:01→17:29)
--- NOTE | 2018-05-18 10:11 | PDOC PROGRESS REPORT ---
Subjective-OB Progress Note for:: 05/18/18 - PP Day #1, doing well, no complaints, O+, Rubella Non immune, breastfeedinf Physical Exam (OB) Vital Signs: Temp Pulse Resp BP Pulse Ox 98.4 F 78 16 111/66 98 05/18/18 08:47 05/18/18 08:47 05/18/18 08:47 05/18/18 08:47 05/18/18 08:47 Intake & Output 05/17/18 05/18/18 05/19/18 06:59 06:59 06:59 Weight 90.083 kg - General General Appearance: Appears well, Alert In distress: None - PIH/Pre-Eclampsia Clonus: Negative Headache: Absent Epigastric Pain: No Visual Changes: No - Lochia Lochia Amount: Scant < 10 ml Lochia Color: Rubra/Red - Abdomen Description: Soft Hernia Present: No Fundal Description: Firm Fundal Height: u/u - u/2 - Respiratory Respiratory Status: No respiratory distress - Abdominal Inspection: Normal Distension: No distension - Genitourinary Genitourinary Note: voiding - Extremities Upper extremity: Normal inspection Lower extremities: Normal inspection - Neurological Cognition: Normal Orientation: AAOx4 - Psychological Associated symptoms: Normal affect, Normal mood - Skin Skin Temperature: Warm Skin Moisture: Dry Objective-Diagnostic Laboratory: 05/18/18 07:35 05/18/18 07:35 WBC 16.3 H RBC 3.43 L Hgb 10.8 L Hct 31.2 L MCV 91 MCH 31.4 MCHC 34.6 RDW 14.5 H Plt Count 305 Seg Neutrophils % 80.9 H Lymphocytes % 13.7 Monocytes % 4.9 Eosinophils % 0.2 Basophils % 0.3 Absolute Neutrophils 13.2 H Absolute Lymphocytes 2.2 Absolute Monocytes 0.8 Absolute Eosinophils 0.0 Absolute Basophils 0.1 Assessment and Plan(PN) - Time Spent with Patient Time with patient: Less than 15 minutes Medications reviewed and adjusted accordingly: Yes - Disposition Anticipated Discharge: Home Within: within 24 hours
[2018-05-18] MEDS: ACETAMINOPHEN 325 MG TABLET PO PRN (17:27)
[2018-05-19] MEDS: ACETAMINOPHEN 325 MG TABLET PO PRN ×2 (04:14→10:15)
[2018-05-19] MEDS: IBUPROFEN 800 MG TABLET PO SCH (06:16)
[2018-05-19 08:50] VITALS: BP 111/73
[2018-05-19] MEDS ORDERED: IBUPROFEN 800 MG TABLET PO SCH (09:00)
[2018-05-19] MEDS: FERROUS SULFATE 325 MG TABLET PO SCH (10:02)
[2018-05-19] MEDS: SENNOSIDES/DOCUSATE 8.6-50 MG 1 EACH TABLET PO SCH (10:02)
[2018-05-19] MEDS: DOCUSATE SODIUM 100 MG CAPSULE PO SCH (10:03)
[2018-05-19] MEDS: FAMOTIDINE 20 MG TABLET PO SCH (10:04)
[2018-05-19] MEDS: PRENATAL VITAMIN W DHA CAPSULE PO SCH (10:04)
--- NOTE | 2018-05-19 10:49 | PDOC PROGRESS REPORT ---
Subjective-OB Progress Note for:: 05/19/18 Subjective: Ready for discharge. Physical Exam (OB) Vital Signs: Temp Pulse Resp BP Pulse Ox 98.7 F 84 15 111/73 99 05/19/18 08:57 05/19/18 08:57 05/19/18 08:57 05/19/18 07:56 05/19/18 08:57 Intake & Output 05/18/18 05/19/18 05/20/18 06:59 06:59 06:59 Intake Total 350 Output Total 550 Balance -550 350 Weight 90.083 kg - PIH/Pre-Eclampsia Clonus: Negative Headache: Absent Epigastric Pain: No Visual Changes: No - Lochia Lochia Amount: Scant < 10 ml Lochia Color: Rubra/Red - Abdomen Description: Soft Hernia Present: No Bowel Sounds: Normoactive Flatus Presence: Present Stool: Yes Fundal Description: Firm Fundal Height: u/u - u/2 Objective-Diagnostic Laboratory: 05/18/18 07:35 Assessment and Plan(PN) - Time Spent with Patient Medications reviewed and adjusted accordingly: Yes - Disposition Anticipated Discharge: Home
--- NOTE | 2018-05-19 10:54 | PDOC DISCHARGE SUMMARY ---
Final Diagnosis Discharge Date: 05/19/18 - Final Diagnosis (1) Delivery normal Is this a current diagnosis for this admission?: Yes (2) Is this a current diagnosis for this admission?: Yes Discharge Data - Discharge Medication Home Medications: Ondansetron [Zofran Odt 4 mg Tablet] 1 - 2 tab PO Q4HP PRN #20 tab.rapdis 09/22/17 Acetaminophen [Tylenol 325 mg Tablet] 650 mg PO Q4HP PRN 05/17/18 Cyclobenzaprine HCl [Flexeril 5 mg Tablet] 5 mg PO TID PRN 05/17/18 105/Iron/Folic AC/Dha [Prena1 True Combo Pack] 1 each PO DAILY 05/17/18 Gestational Age: 40.3 wks Reason(s) for Admission: Induction of Labor Procedures: Ultrasound Intrapartum Procedure(s): Spontaneous Vaginal Delivery Complication(s): Laceration-Perineal Laceration-Degree: 1st - [place] Data Baby 1 Female at 1 minute: 9 at 5 minutes: 9 Weight: 3.6 kg Home with Mother: Yes Complications: No - Diagnosis Test Laboratory: Temp Pulse Resp BP Pulse Ox 98.7 F 84 15 111/73 99 05/19/18 08:57 05/19/18 08:57 05/19/18 08:57 05/19/18 07:56 05/19/18 08:57 05/17/18 05/17/18 05/18/18 08:27 09:00 07:35 RBC 3.87 3.43 L Hgb 12.2 10.8 L Hct 35.1 L 31.2 L Urine Opiates Screen NEGATIVE - Discharge information/Instructions Discharge Activity: Activity As Tolerated, Balance Activity w/Rest, Pelvic Rest, Slowly Increase Activity, No tub bath Discharge Diet: Regular Disposition: HOME, SELF-CARE Follow up with: [facility] in: 4, Weeks
== END 2018-05-19 14:15 | disposition home or self-care (01) | DRG 807 ==
LOC: LR 05-17 07:49 → 2S 05-17 14:40
PROVIDERS: ADMIT Obstetrics & Gynecology; ATTEND Obstetrics & Gynecology
PROC: 10E0XZZ Delivery of Products of Conception, External Approach (ICD-10-PCS; principal; 2018-05-17)
PROC: 0HQ9XZZ Repair Perineum Skin, External Approach (ICD-10-PCS; 2018-05-17)
DX: O69.1XX0 Labor and delivery complicated by cord around neck, with compression, not applicable or unspecified (principal); Z37.0 Single live birth; O48.0 Post-term pregnancy; Z3A.40 40 weeks gestation of pregnancy; O70.0 First degree perineal laceration during delivery; O76 Abnormality in fetal heart rate and rhythm complicating labor and delivery; O77.0 Labor and delivery complicated by meconium in amniotic fluid
CPT/HCPCS: 36415; 80307; 81005; 85025; 86592; 86850; 86900; 86901; J2590; J3490